=== PATIENT | female | born 1955 | race Caucasian/White ===

== ENCOUNTER 2020-09-01 19:15 | Emergency (ER) | payer BC ==
[~2020-09-01] VITALS: Ht 149.9 cm; Wt 81.6 kg
[2020-09-01] MEDS ORDERED: ANUSOL-HC25 MG RC (20:11)
[2020-09-01] MEDS ORDERED: RECTICARE30 GM TOP (20:11)
== END 2020-09-01 20:26 | disposition home or self-care (01) ==
LOC: FSED 19:30
DX: K64.5 Perianal venous thrombosis (principal)
CPT/HCPCS: 99282